=== PATIENT | male | born 1955 | race Hispanic/Latino ===

== ENCOUNTER 2017-12-18 06:27 | Day surgery (SDC) | payer OTHER ==
[2017-12-17 13:47] VITALS: BP 134/82
[2017-12-17 13:50] LABS: EOSINOPHILS % (AUTO) 2.3 % (0.0-8.0); HEMATOCRIT 46.3 % (42-54); MEAN CORPUSCULAR HEMOGLOBIN 29.5 pg (27.0-33.0); MEAN CORPUSCULAR VOLUME 84.2 fL (79-99); MONOCYTES % (AUTO) 9.6 % (3.0-13.0); NEUTROPHILS % (AUTO) 56.1 % (40.0-77.0); PLATELET COUNT (AUTO) 272 K/uL (130-400); RED CELL DISTRIBUTION WIDTH 14.4 % (11.0-15.5); WHITE BLOOD COUNT (AUTO) 5.9 K/uL (4.8-10.8)
[2017-12-17 13:57] LABS: POTASSIUM 4.1 mmol/L (3.5-5.1)
[2017-12-17] MEDS: CEFAZOLIN SODIUM 1 GM VIAL IVP SCH (15:45)
[2017-12-18] VITALS (13 sets, daily range): BP systolic 101–130; BP diastolic 68–91
[~2017-12-18] VITALS: Ht 165.1 cm; Wt 75.8 kg
[~2017-12-18 06:27] MED LIST: IBUP-2070 PO; TYL3 PO
[2017-12-18] MEDS ORDERED: LACTATED RINGERS 1000ML 1,000 ML IV ONE (07:21)
[2017-12-18] MEDS ORDERED: LIDOCAINE PF 2% 5ML ABBOJECT ONE (08:00)
[2017-12-18] MEDS ORDERED: ONDANSETRON HCL MDV 20ML 2 MG/ML VIAL ONE (08:00)
[2017-12-18] MEDS ORDERED: PROPOFOL 10 MG/ML 20ML VIAL IV ONE (08:00)
[2017-12-18] MEDS ORDERED: MIDAZOLAM HCL 1 MG/ML 2ML VIAL ONE (08:01)
[2017-12-18] MEDS ORDERED: FENTANYL CITRATE PF 50 MCG/1 ML 2ML VIAL ONE ×2 (08:01→08:30)
[2017-12-18] MEDS: CEFAZOLIN SODIUM 1 GM VIAL IVP SCH (08:17)
[2017-12-18] MEDS ORDERED: DEXAMETHASONE SOD PHOSPHATE 10MG/ML 1ML VIAL ONE (08:30)
[2017-12-18] MEDS ORDERED: KETOROLAC TROMETHAMINE 30MG/ML ONE (08:49)
[2017-12-18] MEDS ORDERED: MEPERIDINE-PF 25 MG/ML SYG ONE ×2 (09:22→09:32)
== END 2017-12-18 10:55 | disposition home or self-care (01) ==
LOC: DAH 06:27 → SUH 06:27
PROVIDERS: ATTEND Orthopaedic Surgery
DX: M23.222 Derangement of posterior horn of medial meniscus due to old tear or injury, left knee (principal); M23.262 Derangement of other lateral meniscus due to old tear or injury, left knee; M17.0 Bilateral primary osteoarthritis of knee; G89.29 Other chronic pain; Z98.890 Other specified postprocedural states; Z79.899 Other long term (current) drug therapy; Z82.49 Family history of ischemic heart disease and other diseases of the circulatory system
CPT/HCPCS: 29880; 36415; 80048; 85025; A4218; A4606; A4649 ×2; A4930; A6223; J0690; J1100; J1885; J2001; J2175 ×2; J2250; J2704; J3010 ×2; J7120 ×2

== ENCOUNTER 2022-01-16 12:49 | Emergency (ER) | payer OTHER ==
[~2022-01-16] VITALS: Ht 165.1 cm; Wt 76.2 kg
[2022-01-16] MEDS ORDERED: LIDOCAINE HCL 1% 20 ML VIAL INJ STA (12:56)
[2022-01-16] MEDS ORDERED: ACETAMINOPHEN 500 MG TABLET PO ONE (13:00)
[2022-01-16] MEDS ORDERED: TETANUS/DIPHTHERIA TOXOID [ADULT] 0.5 ML VIAL IM ONE (13:00)
[2022-01-16 13:01] VITALS: BP 135/76
[2022-01-16] MEDS ORDERED: LIDOCAINE HCL MPF 1% 5ML VIAL ONE (13:10)
[2022-01-16] MEDS ORDERED: NEOM28OI48 TP (13:36)
[2022-01-16] MEDS ORDERED: MUPIROCIN OINTMENT 22 GM TUBE TP SCH (14:00)
== END 2022-01-16 13:41 | disposition home or self-care (01) ==
LOC: EDH 12:49
DX: S51.011A Laceration without foreign body of right elbow, initial encounter (principal); X58.XXXA Exposure to other specified factors, initial encounter; Y93.89 Activity, other specified; Y92.89 Other specified places as the place of occurrence of the external cause; Y99.8 Other external cause status
CPT/HCPCS: 12002; 90471; 90714; 99283; J3490

== ENCOUNTER 2023-01-02 19:13 | Emergency (ER) | payer OTHER ==
[~2023-01-02] VITALS: Ht 167.6 cm; Wt 74.8 kg
[~2023-01-02 19:13] MED LIST changes: +NEOM28OI48 TP
[2023-01-02] MEDS ORDERED: ADENOSINE 6MG VIAL IV ONE (19:29)
[2023-01-02 19:45] LABS: BASOPHILS % (AUTO) 0.4 % (0.0-5.0); EOSINOPHILS % (AUTO) 1.3 % (0.0-8.0); HEMATOCRIT 45.6 % (42-54); LYMPHOCYTES % (AUTO) 30.4 % (21.0-51.0); MEAN CORPUSCULAR HEMOGLOBIN 28.8 pg (27.0-33.0); MEAN CORPUSCULAR VOLUME 84.8 fL (79-99); NEUTROPHILS % (AUTO) 56.5 % (40.0-77.0); PLATELET COUNT (AUTO) 284 K/uL (130-400); RED BLOOD CELL COUNT(AUTO) 5.38 MIL/uL (4.50-6.20); RED CELL DISTRIBUTION WIDTH 13.1 % (11.0-15.5); WHITE BLOOD COUNT (AUTO) 7.8 K/uL (4.8-10.8)
[2023-01-02 19:55] LABS: CREATININE 1.2 mg/dL (0.5-1.5); POTASSIUM 3.8 mmol/L (3.5-5.1)
[2023-01-02 20:02] LABS: ALBUMIN 3.7 g/dL (3.5-5.0); TOTAL PROTEIN, SERUM 8.2 g/dL (6.0-8.3)
[2023-01-02 23:39] VITALS: BP 129/83
== END 2023-01-02 23:55 | disposition home or self-care (01) ==
LOC: EDH 19:13
DX: I47.1 Supraventricular tachycardia (principal); I48.91 Unspecified atrial fibrillation; Z79.1 Long term (current) use of non-steroidal anti-inflammatories (NSAID)
CPT/HCPCS: 99285; 71045; 80162; 84484; 80053; 85025; 36415; 93005 ×2; J0153